=== PATIENT | male | born 1985 | race Caucasian/White ===

== ENCOUNTER 2016-10-05 20:52 | Emergency (ER) | payer BC ==
[~2016-10-05] VITALS: Ht 172.7 cm; Wt 72.6 kg
[2016-10-05] MEDS ORDERED: TRUMEQ PO (21:10)
[2016-10-05 21:13] VITALS: BP 127/83
--- NOTE | 2016-10-05 21:38 | Emergency Room Report ---
History of Present Illness General Chief Complaint: Gastrointestinal Illness Source: Patient Present Illness HPI Patient is a 31-year-old male who presented after having increased rectal bleeding. Patient had onset of bleeding after anal intercourse. The patient reported having increased pain with attempts at bowel movement. Patient presents being HIV positive. He denies any fever. He reported having moderate amount of rectal pain. He reported having increased constipation. Allergies: Coded Allergies: No Known Allergies (Unverified , 10/05/16) Patient History Past Medical History: see triage record Reviewed Nursing Documentation: PMH: Agreed, PSxH: Agreed Review of Systems All Other Systems: negative except mentioned in HPI Physical Exam Vital Signs Date Time Temp Pulse Resp B/P Pulse Ox O2 Delivery O2 Flow Rate FiO2 10/05/16 21:03 98.4 122 16 6/ 98 Room Air Sp02 EP Interpretation: reviewed, normal General Appearance: normal inspection, well appearing, no apparent distress, alert, GCS 15 Head: atraumatic ENT: normal ENT inspection, hearing grossly normal, normal voice Neck: normal inspection, full range of motion, supple, no bony tend Respiratory: normal inspection, lungs clear, normal breath sounds, no respiratory distress, no retraction, no wheezing Cardiovascular #1: no edema, tachycardia Gastrointestinal: normal inspection, normal bowel sounds, non tender, soft, no guarding, no hernia Rectal: normal rectal tone, heme positive stool, hemorrhoids, prostate non- tender Genitourinary: no CVA tenderness Musculoskeletal: normal inspection, back normal, normal range of motion Neurologic: normal inspection, alert, oriented x3, responsive, negative cutter III-XII nml as tested, speech normal Psychiatric: normal inspection, judgement/insight normal, mood/affect normal Skin: normal inspection, normal color, no rash Medical Decision Making Diagnostic Impression: Primary Impression: Hemorrhoid Additional Impressions: Rectal bleed HIV (human immunodeficiency virus infection) ER Course Patient presented for rectal bleeding. Differential diagnosis included hemorrhoids, fissure, Fournieres gangrene, cellulitis, diverticular bleeding, peptic ulcer disease among others.Because of complexity of patient's case laboratory testing and imaging studies were ordered. Patient given IV fluids. The patient is advised to follow up with primary care doctor in 1-2 days. Patient is advised to return if any worsening condition or if any changes in status that are concerning.Laboratory testing was unremarkable. A KUB 2 views interpreted by me showed a large amount of retained feces without evident free air. the patient is advised to followup with primary care physician. Labs Test 10/05/16 21:29 White Blood Count 10.8 K/UL (4.8-10.8) Red Blood Count 4.94 M/UL (4.70-6.10) Hemoglobin 14.6 G/DL (14.2-18.0) Hematocrit 45.1 % (42.0-52.0) Mean Corpuscular Volume 91 FL (80-99) Mean Corpuscular Hemoglobin 29.5 PG (27.0-31.0) Mean Corpuscular Hemoglobin Concent 32.2 G/DL (32.0-36.0) Red Cell Distribution Width 11.7 % (11.6-14.8) Platelet Count 282 K/UL (150-450) Mean Platelet Volume 6.9 FL (6.5-10.1) Neutrophils (%) (Auto) 65.2 % (45.0-75.0) Lymphocytes (%) (Auto) 24.8 % (20.0-45.0) Monocytes (%) (Auto) 7.7 % (1.0-10.0) Eosinophils (%) (Auto) 1.9 % (0.0-3.0) Basophils (%) (Auto) 0.4 % (0.0-2.0) Prothrombin Time 9.5 SEC (9.30-11.50) Prothromb Time International Ratio 0.9 (0.9-1.1) Activated Partial Thromboplast Time 27 SEC (23-33) Sodium Level 138 mEQ/L (135-145) Potassium Level 4.1 mEQ/L (3.4-4.9) Chloride Level 96 mEQ/L (98-107) Carbon Dioxide Level 29 mEQ/L (20-30) Anion Gap 13 (5-15) Blood Urea Nitrogen 14 mg/dL (7-23) Creatinine 1.0 mg/dL (0.7-1.2) Estimat Glomerular Filtration Rate > 60 mL/min (>60) Glucose Level 96 mg/dL (74-106) Calcium Level 9.3 mg/dL (8.6-10.2) Total Bilirubin < 0.2 mg/dL (0.0-1.2) Aspartate Amino Transf (AST/SGOT) 11 U/L (5-40) Alanine Aminotransferase (ALT/SGPT) 9 U/L (3-41) Alkaline Phosphatase 88 U/L (40-129) Total Protein 6.9 g/dL (6.6-8.7) Albumin 3.8 g/dL (3.5-5.2) Globulin 3.1 g/dL Albumin/Globulin Ratio 1.2 (1.0-2.7) Last Vital Signs Date Time Temp Pulse Resp B/P Pulse Ox O2 Delivery O2 Flow Rate FiO2 10/05/16 21:13 109 17 127/83 98 Room Air 10/05/16 21:03 98.4 Status: improved Disposition: HOME, SELF-CARE Condition: Stable Scripts Lactulose (LACTULOSE*) 20 Gm/30 Ml Solution 30 ML ORAL THREE TIMES A DAY, #60 ML 0 Refills Prov: Lorne Reyes 10/05/16 Lorne Reyes Oct 05, 2016 21:37
[2016-10-05 21:40] LABS: BASOPHILS % (AUTO) 0.4 % (0.0-2.0); EOSINOPHILS % (AUTO) 1.9 % (0.0-3.0); LYMPHOCYTES % (AUTO) 24.8 % (20.0-45.0); MEAN CORPUSCULAR HEMOGLOBIN 29.5 PG (27.0-31.0); MEAN CORPUSCULAR HGB CONC 32.2 G/DL (32.0-36.0); MEAN CORPUSCULAR VOLUME 91 FL (80-99); MEAN PLATELET VOLUME 6.9 FL (6.5-10.1); MONOCYTES % (AUTO) 7.7 % (1.0-10.0); NEUTROPHILS % (AUTO) 65.2 % (45.0-75.0); PLATELET COUNT 282 K/UL (150-450); RED BLOOD COUNT 4.94 M/UL (4.70-6.10); RED CELL DISTRIBUTION WIDTH 11.7 % (11.6-14.8); WHITE BLOOD COUNT 10.8 K/UL (4.8-10.8)
[2016-10-05 21:58] LABS: ALANINE AMINOTRANSFERASE 9 U/L (3-41); ALBUMIN/GLOBULIN RATIO 1.2 (1.0-2.7); ANION GAP 13 (5-15); ASPARTATE AMINO TRANSFERASE 11 U/L (5-40); CALCIUM 9.3 mg/dL (8.6-10.2); CARBON DIOXIDE 29 mEQ/L (20-30); CHLORIDE 96 mEQ/L (98-107); GLOMERULAR FILTRATION RATE > 60 mL/min (>60); HEMOLYSIS 12; POTASSIUM 4.1 mEQ/L (3.4-4.9); SODIUM 138 mEQ/L (135-145); TOTAL PROTEIN 6.9 g/dL (6.6-8.7)
[2016-10-05 22:02] LABS: INR 0.9 (0.9-1.1); PROTHROMBIN TIME 9.5 SEC (9.30-11.50)
[2016-10-05 22:04] VITALS: BP 105/74
[2016-10-05] MEDS ORDERED: LACTULOSE20 GM/301 ORAL (22:07)
[2016-10-05 22:16] VITALS: BP 105/74
--- NOTE | 2016-10-06 11:41 | Diagnostic Imaging Report ---
Indication: Abdominal pain Comparison: None Single view of the abdomen obtained Findings: Bowel gas pattern is nonspecific. No mass, ectopic calcifications, or abnormal gas collections are identified. The bones are unremarkable. Moderate stool noted. Impression: No acute findings
[2016-10-06] MEDS ORDERED: SIMETHICONE80 MG ORAL (16:33)
== END 2016-10-05 22:16 | disposition home or self-care (01) ==
LOC: EMR 22:15
DX: K64.9 Unspecified hemorrhoids (principal); B20 Human immunodeficiency virus [HIV] disease
CPT/HCPCS: 36415; 74000; 80053; 85025; 85610; 85730; 96360

== ENCOUNTER 2016-10-06 14:26 | Emergency (ER) | payer BC ==
[~2016-10-06] VITALS: Ht 175.3 cm; Wt 72.6 kg
[~2016-10-06 14:26] MED LIST: LACTULOSE20 GM/301 ORAL; TRUMEQ PO
[2016-10-06] MEDS ORDERED: Lidocaine 2% Visc 15ml soln ORAL ONE (15:00)
[2016-10-06] MEDS ORDERED: Fleet's Enema 133ml RECTAL ONE (15:00)
--- NOTE | 2016-10-06 15:08 | Emergency Room Report ---
History of Present Illness General Chief Complaint: Abdominal Pain Source: Patient Present Illness HPI Patient is a 31-year-old male brought in by self after increased abdominal cramping. Patient reported having been having some diarrheal stool after being given lactulose by me yesterday. The patient been seen and examined by me yesterday and was noted to have increased abdominal pain after rectal intercourse. Patient denied any vomiting. He reported having increased abdominal pain. Patient stated that he took 2 doses of lactulose. Allergies: Coded Allergies: No Known Allergies (Unverified , 10/05/16) Patient History Past Medical History: see triage record Reviewed Nursing Documentation: PMH: Agreed, PSxH: Agreed Nursing Documentation-PMH Past Medical History: No Stated History Review of Systems All Other Systems: negative except mentioned in HPI Physical Exam Vital Signs Date Time Temp Pulse Resp B/P Pulse Ox O2 Delivery O2 Flow Rate FiO2 10/06/16 14:42 97.9 111 18 112/65 100 Room Air Sp02 EP Interpretation: reviewed, normal General Appearance: normal inspection, well appearing, no apparent distress, alert, GCS 15 Head: atraumatic ENT: normal ENT inspection, hearing grossly normal, normal voice Neck: normal inspection, full range of motion, supple, no bony tend Respiratory: normal inspection, lungs clear, normal breath sounds, no respiratory distress, no retraction, no wheezing Cardiovascular #1: regular rate, rhythm, no edema Gastrointestinal: normal inspection, normal bowel sounds, non tender, no guarding, no hernia Genitourinary: no CVA tenderness Musculoskeletal: normal inspection, back normal, normal range of motion Neurologic: normal inspection, alert, oriented x3, responsive, speech normal Psychiatric: normal inspection, judgement/insight normal, mood/affect normal Skin: normal inspection, normal color, no rash Medical Decision Making Diagnostic Impression: Primary Impression: Abdominal pain ER Course Patient presented for abdominal pain. Differential diagnoses included ischemic bowel, appendicitis, perforated viscus, abdominal aortic aneurysm, inferior myocardial infarction, viral gastroenteritis. Because of complexity of patient' s case laboratory testing and imaging studies were ordered. The patient was noted to have continued rectal bleeding. The patient was noted to be guaiac positive yesterday with what appeared to be some hemorrhoidal bleeding.Patient was noted to unremarkable laboratory testing with adequate hemoglobin. Repeat KUB showed some improvement in the amount of fecal matter. There is no evident obstruction. The patient is advised to follow up with primary care doctor in 1-2 days. Patient is advised to return if any worsening condition or if any changes in status that are concerning. Labs Test 10/06/16 15:20 White Blood Count 10.7 K/UL (4.8-10.8) Red Blood Count 4.95 M/UL (4.70-6.10) Hemoglobin 14.3 G/DL (14.2-18.0) Hematocrit 44.2 % (42.0-52.0) Mean Corpuscular Volume 89 FL (80-99) Mean Corpuscular Hemoglobin 29.0 PG (27.0-31.0) Mean Corpuscular Hemoglobin Concent 32.4 G/DL (32.0-36.0) Red Cell Distribution Width 11.5 % (11.6-14.8) Platelet Count 287 K/UL (150-450) Mean Platelet Volume 7.3 FL (6.5-10.1) Neutrophils (%) (Auto) 70.4 % (45.0-75.0) Lymphocytes (%) (Auto) 20.2 % (20.0-45.0) Monocytes (%) (Auto) 7.9 % (1.0-10.0) Eosinophils (%) (Auto) 1.1 % (0.0-3.0) Basophils (%) (Auto) 0.4 % (0.0-2.0) Sodium Level 138 mEQ/L (135-145) Potassium Level 4.8 mEQ/L (3.4-4.9) Chloride Level 97 mEQ/L (98-107) Carbon Dioxide Level 27 mEQ/L (20-30) Anion Gap 14 (5-15) Blood Urea Nitrogen 9 mg/dL (7-23) Creatinine 0.9 mg/dL (0.7-1.2) Estimat Glomerular Filtration Rate > 60 mL/min (>60) Glucose Level 96 mg/dL (74-106) Calcium Level 9.5 mg/dL (8.6-10.2) Total Bilirubin 0.4 mg/dL (0.0-1.2) Aspartate Amino Transf (AST/SGOT) 10 U/L (5-40) Alanine Aminotransferase (ALT/SGPT) 9 U/L (3-41) Alkaline Phosphatase 80 U/L (40-129) Total Protein 6.9 g/dL (6.6-8.7) Albumin 3.9 g/dL (3.5-5.2) Globulin 3.0 g/dL Albumin/Globulin Ratio 1.3 (1.0-2.7) Lipase 15 U/L (< 60) Last Vital Signs Date Time Temp Pulse Resp B/P Pulse Ox O2 Delivery O2 Flow Rate FiO2 10/06/16 14:42 97.9 111 18 112/65 100 Room Air Status: improved Disposition: HOME, SELF-CARE Condition: Stable Scripts Simethicone* (SIMETHICONE*) 80 Mg Tab.chew 80 MG ORAL Q8H Y for GAS PAIN, #20 TAB 0 Refills Prov: Lorne Reyes 10/06/16 Lorne Reyes Oct 06, 2016 15:08
[2016-10-06 15:39] LABS: BASOPHILS % (AUTO) 0.4 % (0.0-2.0); EOSINOPHILS % (AUTO) 1.1 % (0.0-3.0); LYMPHOCYTES % (AUTO) 20.2 % (20.0-45.0); MEAN CORPUSCULAR HGB CONC 32.4 G/DL (32.0-36.0); MEAN CORPUSCULAR VOLUME 89 FL (80-99); MEAN PLATELET VOLUME 7.3 FL (6.5-10.1); MONOCYTES % (AUTO) 7.9 % (1.0-10.0); NEUTROPHILS % (AUTO) 70.4 % (45.0-75.0); PLATELET COUNT 287 K/UL (150-450); RED BLOOD COUNT 4.95 M/UL (4.70-6.10); RED CELL DISTRIBUTION WIDTH 11.5 % (11.6-14.8); WHITE BLOOD COUNT 10.7 K/UL (4.8-10.8)
[2016-10-06 16:02] LABS: ALANINE AMINOTRANSFERASE 9 U/L (3-41); ALBUMIN/GLOBULIN RATIO 1.3 (1.0-2.7); ANION GAP 14 (5-15); ASPARTATE AMINO TRANSFERASE 10 U/L (5-40); CALCIUM 9.5 mg/dL (8.6-10.2); CARBON DIOXIDE 27 mEQ/L (20-30); CHLORIDE 97 mEQ/L (98-107); CREATININE 0.9 mg/dL (0.7-1.2); GLOMERULAR FILTRATION RATE > 60 mL/min (>60); HEMOLYSIS 5; LIPASE 15 U/L (< 60); POTASSIUM 4.8 mEQ/L (3.4-4.9); SODIUM 138 mEQ/L (135-145); TOTAL PROTEIN 6.9 g/dL (6.6-8.7)
[2016-10-06 16:19] VITALS: BP 128/90
[2016-10-06] MEDS ORDERED: SIMETHICONE80 MG ORAL (16:33)
[2016-10-06 16:45] VITALS: BP 128/90
--- NOTE | 2016-10-07 10:10 | Diagnostic Imaging Report ---
Clinical history: Acute abdominal pain. Technique: Single frontal abdominal radiograph was obtained. Comparisons: 10/05/16. Findings: Moderate retained stool is noted, diminished since the prior exam. Mildly distended small bowel loops may reflect ileus. Impression: Moderate retained stool, diminished since the prior study. Mildly air distended small bowel loops may reflect ileus. Nonspecific, nonobstructive bowel gas pattern.
== END 2016-10-06 16:49 | disposition home or self-care (01) ==
LOC: EMR 15:53
DX: R10.9 Unspecified abdominal pain (principal); R19.7 Diarrhea, unspecified
CPT/HCPCS: 36415; 74000; 80053; 83690; 85025; 96361; 96374; 99284; J2405

== ENCOUNTER 2016-10-07 22:33 | Emergency (ER) | payer BC ==
[~2016-10-07] VITALS: Ht 175.3 cm; Wt 72.6 kg
[~2016-10-07 22:33] MED LIST changes: +SIMETHICONE80 MG ORAL
[2016-10-07] MEDS ORDERED: Lidocaine HCl 2% Jelly 5ml Tube TOPIC ONE (22:45)
[2016-10-07] MEDS ORDERED: Ketorolac 30mg Inj IV ONE (23:00)
--- NOTE | 2016-10-07 23:00 | Emergency Room Report ---
History of Present Illness General Chief Complaint: Gastrointestinal Bleed Source: Patient Present Illness HPI The patient presents with rectal pain and inability to urinate. It has been present for the last 3-4 days. He began after rectal sex but has also felt they can't evacuate his bowels fully. He is being given lactulose. Yesterday's also was given a GI cocktail and also simethicone. There was some blood in the stool when checked 2 days ago. Also states he is having difficulty urinating. He feels that he has turned the shower on and squat down because there is increased rectal pain when he tries to urinate. He urinates at least once a day. The patient is HIV positive and taking his medications. He states his viral load is low and T cell count is high. He's felt dizziness and flushed but denies any fevers. He is a bit of suprapubic pain but the main pain is in his rectum. No rashes. URI sy, chest pain. Anxious. Allergies: Coded Allergies: No Known Allergies (Unverified , 10/05/16) Patient History Past Medical History: see triage record Social History: Reports: smoking, Denies: drug use Social History Narrative at home Reviewed Nursing Documentation: PMH: Agreed, PSxH: Agreed Nursing Documentation-PMH Past Medical History: No History, Except For Review of Systems All Other Systems: negative except mentioned in HPI Physical Exam Vital Signs Date Time Temp Pulse Resp B/P Pulse Ox O2 Delivery O2 Flow Rate FiO2 10/07/16 22:37 97.9 111 16 115/76 99 Room Air Sp02 EP Interpretation: reviewed, normal General Appearance: well appearing, GCS 15, mild distress Head: normocephalic Eyes: bilateral eye PERRL, bilateral eye normal inspection ENT: moist mucus membranes Neck: supple Respiratory: lungs clear, normal breath sounds Cardiovascular #1: regular rate, rhythm Cardiovascular #2: 2+ radial (R) Gastrointestinal: normal inspection, normal bowel sounds, non tender, no mass, non-distended Rectal: heme positive stool, other - tenderness including prostate Genitourinary: normal inspection Musculoskeletal: back normal, gait/station normal, normal range of motion Neurologic: alert, oriented x3, grossly normal Psychiatric: anxious Skin: normal inspection, warm/dry Medical Decision Making Diagnostic Impression: Primary Impression: Urinary retention Additional Impression: Prostatitis Qualified Codes: N41.0 - Acute prostatitis ER Course Patient presents with rectal pain and difficulty urinating. Differential includes back strain, hemorrhoids, rectal trauma, with prostatitis and UTI amongst others. He is a complex patient has been seen here twice before. He still has discomfort. Lidocaine jelly will be used the for the possibility of a rectal hemorrhoidal pain. Also labs will be repeated as well an x-ray as his last x-ray was abnormal with increased amount of gas. Labs are unremarkable. He still can't give us urine. Patient states rectum is better. Bladder scanner = [address] ordered[address] Relief after st. Not admit to amphetamine but believes this might have been given to him by the person he was with when this began. Improved. Discussed st. Patient stable for outpatient observation and treatment. Laboratory Tests Test 10/07/16 23:00 10/08/16 02:15 White Blood Count 8.9 K/UL (4.8-10.8) Red Blood Count 4.69 M/UL (4.70-6.10) L Hemoglobin 13.4 G/DL (14.2-18.0) L Hematocrit 42.2 % (42.0-52.0) Mean Corpuscular Volume 90 FL (80-99) Mean Corpuscular Hemoglobin 28.6 PG (27.0-31.0) Mean Corpuscular Hemoglobin Concent 31.8 G/DL (32.0-36.0) L Red Cell Distribution Width 11.9 % (11.6-14.8) Platelet Count 275 K/UL (150-450) Mean Platelet Volume 6.9 FL (6.5-10.1) Neutrophils (%) (Auto) 63.1 % (45.0-75.0) Lymphocytes (%) (Auto) 24.6 % (20.0-45.0) Monocytes (%) (Auto) 9.1 % (1.0-10.0) Eosinophils (%) (Auto) 2.6 % (0.0-3.0) Basophils (%) (Auto) 0.6 % (0.0-2.0) Prothrombin Time 9.9 SEC (9.30-11.50) Prothrombin Time INR 1.0 (0.9-1.1) PTT 28 SEC (23-33) Sodium Level 137 mEQ/L (135-145) Potassium Level 4.4 mEQ/L (3.4-4.9) Chloride Level 96 mEQ/L (98-107) L Carbon Dioxide Level 29 mEQ/L (20-30) Anion Gap 12 (5-15) Blood Urea Nitrogen 11 mg/dL (7-23) Creatinine 0.9 mg/dL (0.7-1.2) Estimate Glomerular Filtration Rate > 60 mL/min (>60) Glucose Level 140 mg/dL (74-106) H Calcium Level 8.3 mg/dL (8.6-10.2) L Total Bilirubin 0.2 mg/dL (0.0-1.2) Aspartate Amino Transferase (AST) 9 U/L (5-40) Alanine Aminotransferase (ALT) 6 U/L (3-41) Alkaline Phosphatase 80 U/L (40-129) Total Protein 6.5 g/dL (6.6-8.7) L Albumin 3.7 g/dL (3.5-5.2) Globulin 2.8 g/dL Albumin/Globulin Ratio 1.3 (1.0-2.7) Lipase 29 U/L (< 60) Urine Color Yellow Urine Appearance Clear Urine pH 6.0 (4.5-8.0) Urine Specific [place] 1.005 (1.005-1.035) Urine Protein Negative (NEGATIVE) Urine Glucose (UA) Negative (NEGATIVE) Urine Ketones Negative (NEGATIVE) Urine Occult Blood Negative (NEGATIVE) Urine Nitrite Negative (NEGATIVE) Urine Bilirubin Negative (NEGATIVE) Urine Urobilinogen Normal MG/DL (0.0-1.0) Urine Leukocyte Esterase Negative (NEGATIVE) Urine Opiates Screen Negative (NEGATIVE) Urine Barbiturates Screen Negative (NEGATIVE) Phencyclidine (PCP) Screen Negative (NEGATIVE) Urine Amphetamines Screen Positive (NEGATIVE) H Urine Benzodiazepines Screen Negative (NEGATIVE) Urine Cocaine Screen Negative (NEGATIVE) Urine Marijuana (THC) Screen Negative (NEGATIVE) Other X-Ray Diagnostic Results Other X-Ray Diagnostic Results : X-Ray Ordered: abd EP Interpretation: Yes Findings: other - Improved with less gaseous distension, still with inc stool, no obstruction Number of Views: 1 Last Vital Signs Date Time Temp Pulse Resp B/P Pulse Ox O2 Delivery O2 Flow Rate FiO2 10/08/16 04:05 98.6 91 16 130/83 100 Room Air Status: improved Disposition: HOME, SELF-CARE Condition: Improved Scripts Tamsulosin HCl (Flomax) 0.4 Mg Cap.er.24h 0.4 MG ORAL HS, #7 CAP Prov: Canelo Bronson M.D. 10/08/16 Levofloxacin* (LEVAQUIN*) 500 Mg Tablet 500 MG ORAL DAILY, #10 TAB Prov: Canelo Bronson M.D. 10/08/16 Hydrocortisone Acetate* (ANUSOL-HC*) 25 Mg Supp.rect 1 SUPP RECTAL TWICE A DAY, #12 SUPP Prov: Canelo Bronson M.D. 10/08/16 Benzocaine (AMERICAINE) 28 Gm Oint...g. 1 APPLIC TP Q6HR Y for rectal pain, #14 GM Prov: Canelo Bronson M.D. 10/08/16 Canelo Bronson M.D. Oct 07, 2016 23:00
[2016-10-07 23:12] VITALS: BP 115/76
[2016-10-07 23:16] LABS: BASOPHILS % (AUTO) 0.6 % (0.0-2.0); EOSINOPHILS % (AUTO) 2.6 % (0.0-3.0); LYMPHOCYTES % (AUTO) 24.6 % (20.0-45.0); MEAN CORPUSCULAR HEMOGLOBIN 28.6 PG (27.0-31.0); MEAN CORPUSCULAR HGB CONC 31.8 G/DL (32.0-36.0); MEAN CORPUSCULAR VOLUME 90 FL (80-99); MEAN PLATELET VOLUME 6.9 FL (6.5-10.1); MONOCYTES % (AUTO) 9.1 % (1.0-10.0); NEUTROPHILS % (AUTO) 63.1 % (45.0-75.0); PLATELET COUNT 275 K/UL (150-450); RED BLOOD COUNT 4.69 M/UL (4.70-6.10); RED CELL DISTRIBUTION WIDTH 11.9 % (11.6-14.8); WHITE BLOOD COUNT 8.9 K/UL (4.8-10.8)
[2016-10-07 23:32] LABS: ALANINE AMINOTRANSFERASE 6 U/L (3-41); ALBUMIN/GLOBULIN RATIO 1.3 (1.0-2.7); ANION GAP 12 (5-15); ASPARTATE AMINO TRANSFERASE 9 U/L (5-40); CALCIUM 8.3 mg/dL (8.6-10.2); CARBON DIOXIDE 29 mEQ/L (20-30); CHLORIDE 96 mEQ/L (98-107); CREATININE 0.9 mg/dL (0.7-1.2); GLOMERULAR FILTRATION RATE > 60 mL/min (>60); HEMOLYSIS 5; LIPASE 29 U/L (< 60); POTASSIUM 4.4 mEQ/L (3.4-4.9); SODIUM 137 mEQ/L (135-145); TOTAL PROTEIN 6.5 g/dL (6.6-8.7)
[2016-10-07 23:35] LABS: PROTHROMBIN TIME 9.9 SEC (9.30-11.50)
[2016-10-08 01:30] VITALS: BP 120/78
[2016-10-08 02:47] LABS: APPEARANCE,URINE CLEAR; KETONES,URINE NEGATIVE (NEGATIVE); NITRITE,URINE NEGATIVE (NEGATIVE); PROTEIN,URINE NEGATIVE (NEGATIVE)
[2016-10-08 02:48] LABS: LEUKOCYTE ESTERASE ,URINE NEGATIVE (NEGATIVE); UROBILINOGEN,URINE NORMAL MG/DL (0.0-1.0)
[2016-10-08 03:12] VITALS: BP 128/82
[2016-10-08] MEDS ORDERED: Levofloxacin 500mg tab ORAL ONE (03:30)
[2016-10-08] MEDS ORDERED: Tamsulosin 0.4mg cap ORAL STA (03:30)
[2016-10-08] MEDS ORDERED: FLOMAX0.4 MG ORAL (03:34)
[2016-10-08] MEDS ORDERED: ANUSOL-HC25 MG RECTAL (03:34)
[2016-10-08] MEDS ORDERED: LEVAQUIN500 MG ORAL (03:34)
[2016-10-08] MEDS ORDERED: AMERICAINE28 G1 TP (03:34)
[2016-10-08 04:05] VITALS: BP 130/83
--- NOTE | 2016-10-08 11:55 | Diagnostic Imaging Report ---
Indication: Abdominal pain Technique: Supine view of the abdomen Comparison: 10/06/2016 Findings: The bowel gas pattern is unremarkable. Overall amount of bowel gas is decreased from the earlier study. Bowel loops are nondilated. No unusual masses or calcifications There is mild scoliotic deformity of the thoracolumbar junction Impression: No acute process Decreased bowel gas since previous study of one day earlier This agrees with the preliminary interpretation provided by the emergency room physician
[2016-10-08] MEDS ORDERED: Tamsulosin 0.4mg cap ORAL SCH (21:00)
== END 2016-10-08 04:05 | disposition home or self-care (01) ==
LOC: EMR 23:08
DX: R33.9 Retention of urine, unspecified (principal); N41.9 Inflammatory disease of prostate, unspecified; K62.89 Other specified diseases of anus and rectum; F17.200 Nicotine dependence, unspecified, uncomplicated
CPT/HCPCS: 36415; 74000; 80053; 80300; 81003; 83690; 85025; 85610; 85730; 86850; 86900; 86901; 96374; 96375; 99284; J1885; J2405